=== PATIENT | female | born 1970 | race Caucasian/White ===

== ENCOUNTER → 2020-05-07 | Outpatient (CLI) | payer OTHER ==
[2020-05-07 14:03] LABS: HEMOGLOBIN 14.9 gm/dl (12.3-15.3); RED BLOOD COUNT 4.72 M/UL (4.00-5.10); WHITE BLOOD COUNT 8.2 K/UL (4.5-11.0)
[2020-05-07 14:23] LABS: BUN/CREATININE RATIO 10 (0-10)
[2020-05-08 09:14] LABS: HBSAG SCREEN Negative (Negative); HEP B CORE AB, TOT Negative (Negative)
[2020-05-08 11:14] LABS: HCV AB <0.1 (0.0-0.9)
[2020-05-08 12:14] LABS: RHEUMATOID ARTHRITIS FACTOR 52.1 IU/mL (0.0-13.9)
[2020-05-10 04:08] LABS: CCP ANTIBODIES IGG/IGA 216 units (0-19)
== END ==
LOC: LAB 12:58
PROVIDERS: Internal Medicine
DX: D89.89 Other specified disorders involving the immune mechanism, not elsewhere classified (principal); R76.8 Other specified abnormal immunological findings in serum; M25.50 Pain in unspecified joint; Z87.39 Personal history of other diseases of the musculoskeletal system and connective tissue; R53.83 Other fatigue
CPT/HCPCS: 36415; 80053; 82550; 82728; 83520; 84439; 84443; 85025; 85652; 86140; 86200; 86431; 86704; 86803; 87340